=== PATIENT | female | born 1970 | race Caucasian/White ===

== ENCOUNTER 2024-10-01 12:24 | Emergency (ER) | payer OTHER ==
[~2024-10-01] VITALS: Ht 144.8 cm; Wt 64.1 kg
[2024-10-01 14:29] VITALS: BP 122/62
[2024-10-01] MEDS ORDERED: Home HYDROcodone/Acetaminophen 5/325 MG #4 TABS/PACK PO ONE (14:30)
== END 2024-10-01 14:25 | disposition home or self-care (01) ==
LOC: ED 12:24
DX: S52.501A Unspecified fracture of the lower end of right radius, initial encounter for closed fracture (principal); W01.0XXA Fall on same level from slipping, tripping and stumbling without subsequent striking against object, initial encounter